=== PATIENT | male | born 1955 | race Caucasian/White ===

== ENCOUNTER 2023-12-17 06:15 | Day surgery (SDC) | payer OTHER, MEDICARE, SELFPAY ==
--- NOTE | 2023-11-17 09:03 | CM ---
Patient is scheduled for lumbar spine surgery on 12/17/23. Spoke with patient prior to surgery via telephone. Patient had lumbar spine surgery at in July 2023. Reintroduced role of the Orthopedic Navigator. Patient reports that he lives with
his in a two story home. There are two steps to enter and a flight of steps to the second floor. He currently functions independently. He has no DME and has never had VN services. PCP is Dr. Sallie Gatica.
Discussed orthopedic program, post surgical plans and tentative plan for patient to return home when directed by surgeon. Patient is in agreement with tentative plan and will have support from his when he goes home.
Per surgical reservation sheet from Dr. Burk's office, patient does not need a brace.
Plan: Orthopedic Navigator will remain available to assist with the care of patient and will reassess discharge needs after surgery.
[2023-11-24 13:06] VITALS: BMI 27.0
[2023-11-24 14:03] LABS: ALT (SGPT) 25 U/L (0-50); AST (SGOT) 30 U/L (17-59); Albumin 4.2 g/dl (3.5-5.0); Alkaline Phosphatase 101 U/L (38-126); Blood Urea Nitrogen 25 mg/dl (9-20); Calcium 9.9 mg/dl (8.4-10.2); Carbon Dioxide 27 mmol/L (22-30); Chloride 99 mmol/L (98-107); Estimated Creatinine Clearance 48 ml/min; Glucose 210 mg/dl (70-99); Hematocrit 44.3 % (39.0-52.0); Hemoglobin 14.9 g/dL (13.0-18.0); Mean Corp Hgb Conc. 33.6 g/dL (33.0-37.0); Mean Corpuscular Hgb 30.2 pg (27.0-31.0); Mean Corpuscular Volume 89.9 fL (80.0-94.0); Mean Platelet Volume 9.7 fL (7.4-10.4); Platelet Count 237 10^3/uL (130-400); Potassium 4.3 mmol/L (3.5-5.1); Red Blood Cell Count 4.93 10^6/uL (4.70-6.10); Red Cell Dist. Width 13.1 % (11.5-14.5); Sodium 138 mmol/L (135-145); Total Bilirubin 0.9 mg/dl (0.2-1.3); Total Protein 7.1 g/dl (6.3-8.2); White Blood Cell Count 8.8 10^3/uL (4.8-10.8); eGFR > 60.00
[2023-11-24 15:12] VITALS: BMI 27.0
[2023-12-17] VITALS (14 sets, daily range): BP systolic 132–181; BP diastolic 58–84; BMI 27.0
[2023-12-17 09:42] LABS: Glucose - Point of Care 123 mg/dl (70-99)
[2023-12-17] MEDS: CELEBREX 200 MG PO (09:43)
[2023-12-17] MEDS: SKELAXIN 800 MG PO (09:43)
[2023-12-17] MEDS: TYLENOL 1000 MG PO ×2 (09:43→16:18)
[2023-12-17] MEDS: LYRICA 150 MG PO (09:43)
[2023-12-17] MEDS: NORMOSOL-R 1000 IV ×2 (09:43→14:24)
[2023-12-17 13:51] LABS: Glucose - Point of Care 137 mg/dl (70-99)
--- NOTE | 2023-12-17 14:51 | W.DS.TRANS ---
DC Summary - [employer]
-
Discharge Instructions:
Sleep Apnea Risk Intermediate
Discharge Diagnosis/Procedures L4-5 psf w/ revision of instrumentation-Dr. Burk
12/17/23
Diet Diabetic, Carb Controlled
Activity No strenuous activity
Driving Restrictions No driving
Instructions:
Stand-Alone Forms:
Changes to Home Medications: Yes
Discharge Medications:
DC Medications w/original date entered in [employer]
amlodipine 10 mg tablet 10 mg PO DAILY Blood Pressure 05/02/19
valsartan 80 mg tablet 80 mg PO HS Blood Pressure 05/02/19
atorvastatin 40 mg tablet 40 mg PO HS High Cholesterol 07/08/23
cholecalciferol (vitamin D3) 50 mcg (2,000 unit) capsule (Vitamin D3) 50 mcg PO DAILY Supplement 07/08/23
empagliflozin 10 mg tablet (Jardiance) 10 mg PO DAILY Diabetes 07/08/23
metformin 500 mg tablet 500 mg PO BID Diabetes 07/08/23
insulin glargine 100 unit/mL subcutaneous solution 8 unit SC HS 11/20/23
insulin lispro 100 unit/mL subcutaneous pen (Humalog KwikPen (U-100) Insulin) 1 sliding scale dose SC AC 11/20/23
scopolamine base 1 mg over 3 days transdermal patch 1 patch transdermal Q72H #1 ea 11/24/23
Saccharomyces boulardii 250 mg capsule (Florastor) 250 mg PO BID #1 cap 12/17/23
acetaminophen 325 mg capsule (Tylenol) 650 mg PO QID #2 caps 12/17/23
cephalexin 500 mg capsule 500 mg PO QID infection prevention #20 caps 12/17/23
cyclobenzaprine 5 mg tablet 5 mg PO BID muscle pain/sleep #30 tabs 12/17/23
docusate sodium 100 mg capsule (Colace) 100 mg PO BID stool softner #1 cap 12/17/23
famotidine 20 mg tablet 20 mg PO HS GI prophylaxis #30 tabs 12/17/23
gabapentin 300 mg capsule 300 mg PO HS sleep/pain #10 caps 12/17/23
hydromorphone 2 mg tablet 2 - 4 mg PO Q6HPRN PRN 1 tab moderate pain, 2 if pain severe #30 tabs 12/17/23
magnesium hydroxide 400 mg/5 mL oral suspension (Milk of Magnesia) 30 ml PO HS PRN Constipation #1 mL 12/17/23
ondansetron 4 mg disintegrating tablet 4 mg PO Q6H PRN n/v #20 tabs 12/17/23
sennosides 8.6 mg tablet (Senokot) 17.2 mg PO BID laxative #2 tabs 12/17/23
Home Medication Changes
scopolamine base 1 mg over 3 days transdermal patch 1 patch transdermal Q72H #1 ea 11/24/23
Saccharomyces boulardii 250 mg capsule (Florastor) 250 mg PO BID #1 cap 12/17/23
cephalexin 500 mg capsule 500 mg PO QID infection prevention #20 caps 12/17/23
cyclobenzaprine 5 mg tablet 5 mg PO BID muscle pain/sleep #30 tabs 12/17/23
famotidine 20 mg tablet 20 mg PO HS GI prophylaxis #30 tabs 12/17/23
gabapentin 300 mg capsule 300 mg PO HS sleep/pain #10 caps 12/17/23
hydromorphone 2 mg tablet 2 - 4 mg PO Q6HPRN PRN 1 tab moderate pain, 2 if pain severe #30 tabs 12/17/23
ondansetron 4 mg disintegrating tablet 4 mg PO Q6H PRN n/v #20 tabs 12/17/23
Pending Results: No
== END 2023-12-17 17:00 | disposition home or self-care (01) | DRG 460 ==
LOC: SDS 06:15
PROVIDERS: ATTENDING PHYSICIAN Orthopaedic Surgery Orthopaedic Surgery of the Spine; FAMILY PHYSICIAN Family Medicine
PROC: 0SG10K1 Fusion of 2 or more Lumbar Vertebral Joints with Nonautologous Tissue Substitute, Posterior Approach, Posterior Column, Open Approach (ICD-10-PCS; 2023-12-17)
DX: M43.16 Spondylolisthesis, lumbar region (principal); M48.062 Spinal stenosis, lumbar region with neurogenic claudication; N18.30 Chronic kidney disease, stage 3 unspecified; E11.22 Type 2 diabetes mellitus with diabetic chronic kidney disease; I49.3 Ventricular premature depolarization; R91.8 Other nonspecific abnormal finding of lung field; F90.9 Attention-deficit hyperactivity disorder, unspecified type; I12.9 Hypertensive chronic kidney disease with stage 1 through stage 4 chronic kidney disease, or unspecified chronic kidney disease; E78.5 Hyperlipidemia, unspecified; Z86.010 Personal history of colon polyps; Z79.4 Long term (current) use of insulin; Z79.84 Long term (current) use of oral hypoglycemic drugs
CPT/HCPCS: 22612; 22614; 22840; 20930; 36415; 72100; 76000; 80053; 82962; 85027; 87070; 93005; C1713; C1776

== ENCOUNTER → 2025-03-07 06:38 | Outpatient (REF) | payer MEDICARE, SELFPAY | LOC: HWRAD 06:38 | PROVIDERS: ATTENDING PHYSICIAN Family Medicine | DX: R74.8 Abnormal levels of other serum enzymes (principal) | CPT/HCPCS: 76700 ==

== ENCOUNTER → 2025-04-29 10:30 | Outpatient (REF) | payer MEDICARE, OTHER, SELFPAY | LOC: PAVMRI 10:30 | PROVIDERS: ATTENDING PHYSICIAN Student in an Organized Health Care Education/Training Program; FAMILY PHYSICIAN Family Medicine | DX: R74.8 Abnormal levels of other serum enzymes (principal) | CPT/HCPCS: 74183; A9575 ==